=== PATIENT | female | born 1985 | race Caucasian/White ===

== ENCOUNTER 2016-06-03 09:31 | Emergency (ER) | payer OTHER ==
[2016-06-03] MEDS ORDERED: IOPAMIDOL 370 (76%) 100 ML VIAL IV ONE (09:32)
[2016-06-03] MEDS ORDERED: DIPHENHYDRAMINE HCL 50 MG/1 ML VIAL ONE (10:39)
[2016-06-03] MEDS ORDERED: PROMETHAZINE HCL 25 MG/ML VIAL ONE ×2 (10:39→12:10)
[2016-06-03] MEDS ORDERED: LACTATED RINGERS 1,000 ML ONE (10:39)
[2016-06-03] MEDS ORDERED: LORAZEPAM 2 MG/ML 1ML SDV ONE (10:39)
[2016-06-03 10:45] LABS: ABSOLUTE NEUTROPHIL COUNT 5.2 K/mm3 (1.8-7.7); BASO % 0.3 % (0.2-1.0); EOS % 0.6 % (0.9-2.9); HEMATOCRIT 37.4 % (37.0-47.0); HEMOGLOBIN 12.3 gm/l (12.0-16.0); IMM NEUT% 0.3 % (0-1); LYMPH # 1.5 (1.0-4.8); LYMPH % 21.3 % (15-45); MEAN CELL VOLUME 91.9 fl (81.0-99.0); MEAN CORPUSCULAR HEMOGLOBIN 30.2 pg (27.0-31.0); MEAN CORPUSCULAR HGB CONC 32.9 g/dl (33.0-37.0); MEAN PLATELET VOLUME 9.5 fl (7.4-10.4); MONO # 0.4 (0.0-0.8); MONO % 4.9 % (4-12); NEUT % 72.6 % (43-75); PLATELET COUNT 263 K/mm3 (130-400); RED CELL DISTRIBUTION WIDTH 11.6 % (11.5-14.5)
[2016-06-03 11:02] LABS: CALCIUM 8.9 mg/dL (8.6-10.3)
--- NOTE | 2016-06-03 11:45 | CT ---
Exams: CT head without contrast, CT angiogram head, CT angiogram neck COMPARISON: CT head 03/22/2014 INDICATION: Headache and posterior head for 5 days. History of migraines, but this is worse. TECHNIQUE: CT angiogram of the head was obtained without contrast. CT angiogram of the head and neck was then obtained following the administration of 80 mL Isovue-370 intravenous contrast using a CT angiogram protocol which was supplemented with MIP reconstructions from the CT workstation. FINDINGS: Unenhanced CT head: There is no acute intracranial hemorrhage. There is no abnormal intra or extra-axial fluid collection. There is no edema, mass effect or midline shift. Ventricles are normal in size. There is almost complete opacification of the right sphenoid sinus. The remainder of the paranasal sinuses and mastoid air cells are well aerated. CT angiogram neck: There is 2 vessel branching off of the aortic arch, a normal anatomic variant. The bilateral common carotid arteries and internal carotid arteries are widely patent. The vertebral arteries are codominant and widely patent. Visualized mediastinum is within normal limits. Lung apices are clear. No worrisome osseous abnormalities identified. CT angiogram head: The intracranial portion of the carotid arteries are widely patent. The bilateral middle cerebral and anterior cerebral arteries are widely patent. The vertebral arteries join to form the basilar artery which is widely patent, as are the posterior cerebral arteries. No abnormal enhancement is seen within the brain. No aneurysm is identified. IMPRESSION: 1. No acute intracranial abnormality. 2. Almost complete opacification of the right sphenoid sinus which could reflect acute sphenoid sinusitis. 3. CT angiograms of the head and neck are within normal limits. Report was uploaded to the EMR at 1141 hours 06/03/2016.
[2016-06-03 12:05] LABS: SPECIFIC GRAVITY 1.015 (1.001-1.030); URINE BILIRUBIN NEGATIVE (NEGATIVE); URINE BLOOD NEGATIVE (NEGATIVE); URINE GLUCOSE (UA) NEGATIVE (NEGATIVE); URINE LEUKOCYTE ESTERASE NEGATIVE (NEGATIVE); URINE NITRITE NEGATIVE (NEGATIVE); URINE PROTEIN NEGATIVE (NEGATIVE); URINE UROBILINOGEN NORMAL (0-1 mg/dl)
[2016-06-03 12:06] LABS: URINE APPEARANCE CLEAR; URINE COLOR LIGHT YELLOW
[2016-06-03] MEDS ORDERED: HYDROMORPHONE HCL 1 MG/ML SYRINGE ONE (12:10)
[2016-06-03] MEDS ORDERED: SODIUM CHLORIDE 0.9% 100 ML IV ONE (12:11)
[2016-06-03] MEDS ORDERED: HYDROMORPHONE HCL 0.5 MG/0.5 ML SYRINGE ONE (14:13)
[2016-06-03] MEDS ORDERED: HALOPERIDOL LACTATE 5 MG/1 ML AMP ONE (14:14)
[2016-06-03] MEDS ORDERED: PSEUDOEPHEDRINE HCL 30 MG TABLET PO ONE (14:30)
== END 2016-06-03 15:13 | disposition home or self-care (01) ==
LOC: ED 09:31
DX: R51 Headache (principal); R09.81 Nasal congestion; R11.0 Nausea; F17.210 Nicotine dependence, cigarettes, uncomplicated
CPT/HCPCS: 84703; 85025; 80048; 81003; 70450; 70496; 70498; 96375 ×4; 99284 ×2; 96365; 96366; J2060; J1200; J1170 ×2; J1630; J2550 ×2; A9270; J7120; J7050; Q9967

== ENCOUNTER 2016-06-05 08:33 | Emergency (ER) | payer OTHER ==
[2016-06-05] MEDS ORDERED: KETOROLAC TROMETHAMINE 30 MG/ML 1 ML VIAL ONE (09:40)
[2016-06-05] MEDS ORDERED: PROCHLORPERAZINE 5 MG/ML 2 ML VIAL ONE (09:41)
[2016-06-05 09:49] LABS: ABSOLUTE NEUTROPHIL COUNT 5.1 K/mm3 (1.8-7.7); BASO % 0.3 % (0.2-1.0); EOS % 0.4 % (0.9-2.9); HEMATOCRIT 39.5 % (37.0-47.0); HEMOGLOBIN 13.2 gm/l (12.0-16.0); IMM NEUT% 0.3 % (0-1); LYMPH # 1.5 (1.0-4.8); LYMPH % 21.7 % (15-45); MEAN CELL VOLUME 90.6 fl (81.0-99.0); MEAN CORPUSCULAR HEMOGLOBIN 30.3 pg (27.0-31.0); MEAN CORPUSCULAR HGB CONC 33.4 g/dl (33.0-37.0); MEAN PLATELET VOLUME 9.9 fl (7.4-10.4); MONO # 0.4 (0.0-0.8); MONO % 5.2 % (4-12); NEUT % 72.1 % (43-75); PLATELET COUNT 293 K/mm3 (130-400); RED CELL DISTRIBUTION WIDTH 11.6 % (11.5-14.5)
[2016-06-05 09:55] LABS: I-STAT CREATININE 0.4 mg/dL (0.6-1.3)
[2016-06-05] MEDS ORDERED: METOCLOPRAMIDE HCL 5 MG/ML 2ML VIAL ONE (10:25)
[2016-06-05] MEDS ORDERED: LORAZEPAM 2 MG/ML 1ML SDV ONE (10:26)
[2016-06-05 14:50] LABS: ALB/GLOB RATIO 1.5 (>1.0); ALBUMIN 4.4 gm/dL (3.5-5.7); CALCIUM 9.8 mg/dL (8.6-10.3)
== END 2016-06-05 11:43 | disposition home or self-care (01) ==
LOC: ED 08:33
DX: R51 Headache (principal); F17.210 Nicotine dependence, cigarettes, uncomplicated
CPT/HCPCS: 85025; 80047; 80053; 96375 ×3; 99284; 96374; 99283; J2060; J0780; J2765; J1885

== ENCOUNTER 2016-06-06 14:45 | Emergency (ER) | payer OTHER ==
[2016-06-06] MEDS ORDERED: LIDOCAINE 1% (PRES FREE) 30 ML VIAL EP ONE ×2 (14:46)
[2016-06-06] MEDS ORDERED: ONDANSETRON 4 MG/2ML 2 ML VIAL ONE (15:10)
[2016-06-06] MEDS ORDERED: HYDROMORPHONE HCL 1 MG/ML SYRINGE ONE ×4 (15:12→21:24)
[2016-06-06 15:35] LABS: ABSOLUTE NEUTROPHIL COUNT 4.4 K/mm3 (1.8-7.7); BASO % 0.3 % (0.2-1.0); EOS # 0.1 (0.0-0.5); EOS % 0.9 % (0.9-2.9); HEMATOCRIT 41.1 % (37.0-47.0); HEMOGLOBIN 13.3 gm/l (12.0-16.0); IMM NEUT% 0.3 % (0-1); LYMPH # 1.9 (1.0-4.8); LYMPH % 28.6 % (15-45); MEAN CELL VOLUME 93.4 fl (81.0-99.0); MEAN CORPUSCULAR HEMOGLOBIN 30.2 pg (27.0-31.0); MEAN CORPUSCULAR HGB CONC 32.4 g/dl (33.0-37.0); MEAN PLATELET VOLUME 9.8 fl (7.4-10.4); MONO # 0.3 (0.0-0.8); NEUT % 64.9 % (43-75); PLATELET COUNT 304 K/mm3 (130-400); RED CELL DISTRIBUTION WIDTH 11.5 % (11.5-14.5)
[2016-06-06 15:55] LABS: ALB/GLOB RATIO 1.4 (>1.0); ALBUMIN 4.1 gm/dL (3.5-5.7); CALCIUM 9.3 mg/dL (8.6-10.3)
--- NOTE | 2016-06-06 17:38 | RAD ---
Procedure: Fluoroscopic guided lumbar puncture Indication: Headache for [address] Unsuccessful LP by the emergency physician. TECHNIQUE: The procedure benefits risks of the procedure were discussed with the patient. All questions answered. Informed consent was obtained and witnessed and augmentation was placed in the patient's medical record. With the patient in prone position, the L4-5 level was selected for entrance into the thecal sac and an appropriate entrance site was marked on the skin. The back was prepped and draped in the usual sterile fashion. 1% lidocaine mixed with bicarbonate was administered to achieve a regional anesthesia. Under fluoroscopic guidance, a 20-gauge needle was placed into the back however no CSF was able to be withdrawn. I felt like I entered the thecal sac multiple times and despite having patient cough and tilting table, CSF never filled from the hub. Eventually dark blood was seen coming from the hub. This needle was removed and the procedure was attempted a second time, however with the same results. I then selected the L3-4 interspace for entrance into the thecal sac and again was met with the same results. Therefore procedure was terminated at that time. Whether the blood products for from earlier attempted LP or from the vertebrobasilar plexus is uncertain. Patient tolerated the procedure and there were no immediate complications. Patient was moving extremities at the end of the exam and was returned to the emergency department for further evaluation, management and treatment. IMPRESSION: Unsuccessful fluoroscopic guided lumbar puncture. Findings were discussed with Dr. Ferrell 172 hours 06/06/2016.
== END 2016-06-06 22:06 | disposition short-term general hospital (02) ==
LOC: ED 14:45
DX: R55 Syncope and collapse (principal); G43.919 Migraine, unspecified, intractable, without status migrainosus; F17.210 Nicotine dependence, cigarettes, uncomplicated
CPT/HCPCS: 85025; 87070; 80053; 62270 ×3; 96375; 96376; 99284; 96374; 93005; 99285; J1170 ×4; J2001; J2405

== ENCOUNTER 2016-06-15 14:52 | Emergency (ER) | payer OTHER ==
[2016-06-15 16:50] LABS: SPECIFIC GRAVITY 1.015 (1.001-1.030); URINE BILIRUBIN NEGATIVE (NEGATIVE); URINE BLOOD NEGATIVE (NEGATIVE); URINE GLUCOSE (UA) NEGATIVE (NEGATIVE); URINE LEUKOCYTE ESTERASE NEGATIVE (NEGATIVE); URINE NITRITE NEGATIVE (NEGATIVE); URINE PROTEIN NEGATIVE (NEGATIVE); URINE UROBILINOGEN NORMAL (0-1 mg/dl)
[2016-06-15 16:54] LABS: URINE APPEARANCE CLEAR; URINE COLOR LIGHT YELLOW
== END 2016-06-15 17:10 | disposition home or self-care (01) ==
LOC: ED 14:52
DX: R55 Syncope and collapse (principal); F17.210 Nicotine dependence, cigarettes, uncomplicated